=== PATIENT | male | born 1970 | race Two or more races ===

== ENCOUNTER 2022-03-01 09:41 | Emergency (ER) | payer BC ==
[~2022-03-01] VITALS: Ht 185.4 cm; Wt 108.9 kg
--- NOTE | 2022-03-01 09:41 | NUR ---
BIB SELF C/O SHARP CHEST PAIN NON RADIATING STARTED 30 MINS [employer]PER[employer]."WHILE PLAYING TENNIS THEN SUDDEN CHEST PAIN I CANT EXPLAIN". THE PATIENT RATES PAIN 10/10. THE PATIENT IS NOTED TO BE DIAPHORETIC. STARTED ON OXYGEN AT 2L/MIN VIA NASAL CANNULA. ATTACHED TO THE MONITOR. DR SCHERER AT THE BEDSIDE.
[2022-03-01] MEDS ORDERED: MORPHINE SULFATE INJ 4 MG/ML DISP.SYRIN ONE ×2 (09:42→09:49)
--- NOTE | 2022-03-01 09:42 | NUR ---
ACCUCHECK READING IS 142. DR MATSONUC AWARE.
--- NOTE | 2022-03-01 09:44 | NUR ---
CALLED [facility] FOR NCODE STEMI TRANSFER, WAS ADVISED TO CALL 911 BECAUSE THEY HAVE NO CCT TRANSPORT.
--- NOTE | 2022-03-01 09:47 | NUR ---
X RAY AT BEDSIDE
[2022-03-01] MEDS ORDERED: NITROGLYCERIN 0.4 MG/TAB BOTTLE ONE (09:49)
--- NOTE | 2022-03-01 09:50 | NUR ---
CALLED 911
[2022-03-01 09:51] VITALS: BP 165/143
[2022-03-01] MEDS ORDERED: HEPARIN SODIUM, PORCINE 5000 UNITS/1 ML VIAL ONE (09:54)
--- NOTE | 2022-03-01 09:54 | NUR ---
REPORT GIVEN TO EMS [facility] FOR PT TRANSFER TO [facility].
--- NOTE | 2022-03-01 09:57 | NUR ---
DR. SCHERER SPEAKING TO DR. BILLINGSLEY FROM [facility].
--- NOTE | 2022-03-01 09:58 | NUR ---
[employer] 911 TRANSPORT AT BEDSIDE.
--- NOTE | 2022-03-01 09:59 | NUR ---
[facility] 88 PICKED UP THE PATIENT TO TRANSFER TO [facility].
--- NOTE | 2022-03-01 10:00 | NUR ---
THE PATIENT IS TRANSFERED TO [facility] VIA 911
--- NOTE | 2022-03-01 10:05 | NUR ---
PT'S INITIAL EKG COMPLETED AT 0939 AND SECOND ORDER WAS COMPLETED AT 0954.
[2022-03-01] MEDS ORDERED: IV NS 0.9% 500 ML IV ONE (10:30)
[2022-03-01] MEDS ORDERED: ASPIRIN 325 MG TABLET PO ONE (10:30)
[2022-03-01] MEDS ORDERED: MORPHINE SULFATE INJ 2 MG/ML DISP.SYRIN IV ONE ×2 (10:30)
[2022-03-01] MEDS ORDERED: NITROGLYCERIN 0.4 MG/TAB BOTTLE SL ONE ×3 (10:30)
[2022-03-01] MEDS ORDERED: ASPIRIN EC 325 MG TABLET.DR PO ONE (10:56)
== END 2022-03-01 10:05 | disposition short-term general hospital (02) ==
LOC: ER 09:45
DX: I21.3 ST elevation (STEMI) myocardial infarction of unspecified site (principal); E11.9 Type 2 diabetes mellitus without complications; Z60.2 Problems related to living alone
CPT/HCPCS: 71045; 93005 ×2; 96361; 96374; 99291; J1644; J2270 ×2; J7030